=== PATIENT | female | born 1935 | race African-American/Black ===

== ENCOUNTER → 2017-04-16 | Outpatient (CLI) | payer MEDICARE ==
--- NOTE | 2017-04-18 09:22 | RADIOLOGY REPORT PS360 ---
MRI-BRAIN W/O HISTORY: ACUTE ISCHEMIC STROKE . Alzheimer's study [facility] one year. No reflexes left foot. Patient Age: 81 years: Female Ordering Physician: Regulo Abraham MD TECHNIQUE: Noncontrast. Multiplanar FLAIR, T1, T2 weighted images along with axial diffusion/ADC imaging performed on 1.5 T. Siemens, MRI. COMPARISON :No previous head studies at this facility FINDINGS No acute ischemia or infarct evident on today's diffusion images. . No territorial infarct evident. Only a single small deep white matter pinpoint high signal focus noted at the periventricular deep white matter right cerebral hemisphere/towards right frontal lobe. Typically we see more numerous foci but only one is identified at the deep white matter superior to the right sylvian fissure Diffuse cerebral atrophy appropriate for age. Perhaps slightly more evident posterior parietal region Cranial cervical junction appears normal. Ventricles and basal cisterns appear satisfactory. Sella and pituitary unremarkable No mass lesion. Brain or skull. The visualized paranasal sinuses are clear. Posterior fossa IACs mastoid air cells region unremarkable. Orbits unremarkable. Diffuse prominent thickening of the skull... Recommend plain films of skull or head CT to correlate for possible pagets changes of skull. Posteriorly skull measures up to nearly 14 mm thickness at midline Cervical spondylosis incidentally noted at C3/4. Yields spinal stenosis at this level IMPRESSION 1. Diffuse cerebral atrophy 2. No recent infarct or ischemia evident . No territorial infarct. No intracranial mass lesion. 3.. Only single pinpoint right periventricular deep white matter high signal focus; towards right frontal lobe/ superior to right sylvian fissure. Most likely reflects minor microangiopathic white matter focus 4. Diffuse prominent thickening of the skull. This prominent degree of thickening could reflectPagets changes at skulll vs merely diffuse prominent hyperostosis skull. Suggest correlation with skull series and/or correlation with any outside studies/prior CT.
== END ==
LOC: RAD 10:42
DX: I63.8 Other cerebral infarction (principal)

== ENCOUNTER → 2017-05-19 | Outpatient (CLI) | payer MEDICARE ==
--- NOTE | 2017-05-20 21:40 | RADIOLOGY REPORT PS360 ---
DIG MAMM-SCREEN [facility] W/CAD CAD Screening ORDERING PHYSICIAN : Regulo Abraham MD PATIENT AGE: 81 years GENDER: Female COMPARISON: Previous mammograms: 81-year-old. No hormones. No new complaints. Previous right surgical excisional benign biopsy. Noncontributory family history INDICATION: Routine screening August 2010, January 2013, May 2014, April 2015 TECHNIQUE: Standard CC and MLO images were obtained. R2 CAD reviewed. FINDINGS: Low-density breast bilaterally with no dominant mass nor suspicious calcifications. RIGHT BREAST: Right breast appears stable as minimal fibrolinear elements LEFT BREAST:. Area of mild focal density at the lateral left breast again noted and unchanged.. This area is been present studies dating back to 2010 2013 has not changed significantly. Given such a follow-up in one year adequate. IMPRESSION: Stable bilateral mammogram no significant new areas of concern BI-RADS CATEGORY: 1_Negative RECOMMENDED FOLLOWUP: 12M 12 MONTH FOLLOW-UP (A letter has been sent to the patient regarding results of the study.)
== END ==
LOC: RAD 05-17 11:00
DX: Z12.31 Encounter for screening mammogram for malignant neoplasm of breast (principal)
CPT/HCPCS: G0202